=== PATIENT | female | born 1965 | race Caucasian/White ===

== ENCOUNTER 2021-06-23 14:03 | Day surgery (SDC) | payer MEDICARE ==
[2021-06-23] MEDS ORDERED: BUPIVACAINE 0.5% VIAL IJ ONE (14:04)
[2021-06-23] MEDS ORDERED: Depo-Medrol 40 MG/ML IM ONE (14:04)
[2021-06-23] MEDS ORDERED: Lactated Ringers 1,000 ML IV ONE (15:38)
[2021-06-23] MEDS ORDERED: DIPRIVAN 200 MG/20 ML IV ONE (16:37)
--- NOTE | 2021-06-23 18:49 | XRAY ---
Indication: Bilateral SI joint injection. Intraoperative fluoroscopy provided for 18 seconds. 4 digital spot image submitted for interpretation demonstrates posterior needle tip projecting over the inferior left and right SI joint. Correlate with intraoperative findings/report.
--- NOTE | 2021-06-23 18:51 | XRAY ---
18 seconds fluoroscopy time in surgery for injections of both SI joints.
== END 2021-06-23 17:00 | disposition home or self-care (01) ==
LOC: SDC-PAIN 14:03
PROVIDERS: ATTEND Psychiatry & Neurology Pain Medicine
DX: M47.812 Spondylosis without myelopathy or radiculopathy, cervical region (principal); Z79.899 Other long term (current) drug therapy
CPT/HCPCS: 27096; 72202; 77002; G0260; J1030; J2704

== ENCOUNTER 2021-07-14 12:54 | Day surgery (SDC) | payer MEDICARE ==
[2021-07-14] MEDS ORDERED: LIDOCAINE HCL 2% 100 MG/5 ML IJ ONE (12:55)
[2021-07-14] MEDS ORDERED: Depo-Medrol 40 MG/ML IM ONE (12:55)
[2021-07-14] MEDS ORDERED: Lactated Ringers 1,000 ML IV ONE (15:17)
[2021-07-14] MEDS ORDERED: DIPRIVAN 200 MG/20 ML IV ONE (15:37)
--- NOTE | 2021-07-14 16:50 | XRAY ---
Indication: Bilateral L4-S1 MBB. Intraoperative fluoroscopy provided for 11 seconds. Single digital spot image submitted for interpretation demonstrates posterior needle tips projecting over the expected left and right L4-S1 nerve roots. Correlate with intraoperative findings/report.
--- NOTE | 2021-07-14 16:52 | XRAY ---
11 seconds of fluoroscopy was used in surgery for a bilateral L4-S1 MBB.
== END 2021-07-14 16:05 | disposition home or self-care (01) ==
LOC: SDC-PAIN 12:54
PROVIDERS: ATTEND Psychiatry & Neurology Pain Medicine
DX: M47.816 Spondylosis without myelopathy or radiculopathy, lumbar region (principal); I10 Essential (primary) hypertension; Z79.899 Other long term (current) drug therapy
CPT/HCPCS: 64493; 64494; 72020; 77002; J1030; J2704

== ENCOUNTER 2021-08-11 12:16 | Day surgery (SDC) | payer MEDICARE ==
[2021-08-11] MEDS ORDERED: Depo-Medrol 40 MG/ML IM ONE (12:17)
[2021-08-11] MEDS ORDERED: Marcaine Mpf 0.5% Vial 30 Ml IJ ONE (12:17)
[2021-08-11] MEDS ORDERED: DIPRIVAN 200 MG/20 ML IV ONE ×2 (13:38→13:39)
[2021-08-11] MEDS ORDERED: Lactated Ringers 1,000 ML IV ONE (14:02)
--- NOTE | 2021-08-11 15:05 | XRAY ---
Indication: Bilateral L4-S1 MBB. Intraoperative fluoroscopy provided for 13 seconds. Single digital spot images submitted for interpretation demonstrates posterior needle tips projecting over the expected left and right L4-S1 nerve roots. Correlate with intraoperative findings/report.
--- NOTE | 2021-08-11 15:07 | XRAY ---
13 seconds of fluoroscopy was used in surgery for a bilateral L4-S1 MBB.
== END 2021-08-11 14:08 | disposition home or self-care (01) ==
LOC: SDC-PAIN 12:16
PROVIDERS: ATTEND Psychiatry & Neurology Pain Medicine
DX: M47.816 Spondylosis without myelopathy or radiculopathy, lumbar region (principal); Z79.899 Other long term (current) drug therapy
CPT/HCPCS: 64493; 64494; 72020; 77002; J1030; J2704

== ENCOUNTER 2021-09-08 14:14 | Day surgery (SDC) | payer MEDICARE ==
[2021-09-08] MEDS ORDERED: Marcaine Mpf 0.5% Vial 30 Ml IJ ONE (14:15)
[2021-09-08] MEDS ORDERED: Depo-Medrol 40 MG/ML IM ONE (14:15)
[2021-09-08] MEDS ORDERED: XYLOCAINE-MPF 1% 5ML SDV IJ ONE (14:15)
[2021-09-08] MEDS ORDERED: DIPRIVAN 200 MG/20 ML IV ONE (15:36)
[2021-09-08] MEDS ORDERED: Lactated Ringers 1,000 ML IV ONE (16:38)
--- NOTE | 2021-09-09 18:32 | XRAY ---
14 seconds of fluoroscopy was used in surgery for a left L4-S1 RFA.
--- NOTE | 2021-09-10 21:32 | XRAY ---
Indication: Left L4-S1 RFA. Intraoperative fluoroscopy provided for 14 seconds. 3 digital spot images submitted for interpretation demonstrates posterior needle tips projecting over the expected left L4-S1 nerve roots. Correlate with intraoperative findings/report.
== END 2021-09-08 16:02 | disposition home or self-care (01) ==
LOC: SDC-PAIN 14:14
PROVIDERS: ATTEND Psychiatry & Neurology Pain Medicine
DX: M47.816 Spondylosis without myelopathy or radiculopathy, lumbar region (principal); Z79.899 Other long term (current) drug therapy
CPT/HCPCS: 64635; 64636; 72100; 77002; J1030; J2704

== ENCOUNTER 2021-09-15 10:55 | Day surgery (SDC) | payer MEDICARE ==
[2021-09-15] MEDS ORDERED: Depo-Medrol 40 MG/ML IM ONE (10:56)
[2021-09-15] MEDS ORDERED: Marcaine Mpf 0.5% Vial 30 Ml IJ ONE (10:56)
[2021-09-15] MEDS ORDERED: XYLOCAINE-MPF 1% 5ML SDV IJ ONE (10:56)
[2021-09-15] MEDS ORDERED: DIPRIVAN 200 MG/20 ML IV ONE (12:42)
[2021-09-15] MEDS ORDERED: Lactated Ringers 1,000 ML IV ONE (14:04)
--- NOTE | 2021-09-15 14:13 | XRAY ---
Indication: Right L4-S1 RFA. Intraoperative fluoroscopy provided for 15 seconds. 3 digital spot images submitted for interpretation demonstrates posterior needle tips projecting over the expected right L4-S1 nerve roots. Correlate with intraoperative findings/report.
--- NOTE | 2021-09-15 14:54 | XRAY ---
15 seconds fluoroscopy time in surgery for right L4-S1 RFA.
== END 2021-09-15 13:11 | disposition home or self-care (01) ==
LOC: SDC-PAIN 10:55
PROVIDERS: ATTEND Psychiatry & Neurology Pain Medicine
DX: M47.816 Spondylosis without myelopathy or radiculopathy, lumbar region (principal); Z79.899 Other long term (current) drug therapy
CPT/HCPCS: 64635; 64636; 72100; 77002; J1030; J2704

== ENCOUNTER 2022-01-05 12:00 | Day surgery (SDC) | payer MEDICARE ==
[2022-01-05] MEDS ORDERED: Depo-Medrol 40 MG/ML IM ONE (12:01)
[2022-01-05] MEDS ORDERED: Sodium Chloride 0.9(Preservative Free) 10 ML IJ ONE (12:01)
[2022-01-05] MEDS ORDERED: DIPRIVAN 200 MG/20 ML IV ONE (14:28)
--- NOTE | 2022-01-05 15:00 | XRAY ---
Indication: Right L4-S1 transforaminal DILEEP. Intraoperative fluoroscopy provided for 53 seconds. 5 digital spot images submitted for interpretation demonstrates posterior needle tips projecting over the expected right L4 and L5 nerve roots. Small amount of contrast injected for needle tip placement. Correlate with intraoperative findings/report.
--- NOTE | 2022-01-05 15:18 | XRAY ---
53 seconds of fluoroscopy was used in surgery for a right L4-S1 transforaminal DILEEP.
[2022-01-05] MEDS ORDERED: Lactated Ringers 1,000 ML IV ONE (15:49)
== END 2022-01-05 14:52 | disposition home or self-care (01) ==
LOC: SDC-PAIN 12:00
PROVIDERS: ATTEND Psychiatry & Neurology Pain Medicine
DX: M54.16 Radiculopathy, lumbar region (principal); Z79.899 Other long term (current) drug therapy
CPT/HCPCS: 64483; 64484; 72100; 77003; J1030; J2704; Q9966

== ENCOUNTER 2022-03-16 12:22 | Day surgery (SDC) | payer MEDICARE ==
[2022-03-16] MEDS ORDERED: BUPIVACAINE 0.5% VIAL IJ ONE (12:23)
[2022-03-16] MEDS ORDERED: Depo-Medrol 40 MG/ML IM ONE (12:23)
[2022-03-16] MEDS ORDERED: DIPRIVAN 200 MG/20 ML IV ONE (15:23)
--- NOTE | 2022-03-16 16:49 | XRAY ---
Indication: Bilateral SI joint injection. Intraoperative fluoroscopy provided for 14 seconds. 4 digital spot image submitted for interpretation demonstrates posterior needle tip projecting over the left and right SI joint. Correlate with intraoperative findings/report.
[2022-03-16] MEDS ORDERED: Lactated Ringers 1,000 ML IV ONE (17:06)
--- NOTE | 2022-03-16 17:33 | XRAY ---
14 seconds of fluoroscopy was used in surgery for bilateral SI joint injections.
== END 2022-03-16 15:55 | disposition home or self-care (01) ==
LOC: SDC-PAIN 12:22
PROVIDERS: ATTEND Psychiatry & Neurology Pain Medicine
DX: M46.1 Sacroiliitis, not elsewhere classified (principal); Z79.899 Other long term (current) drug therapy
CPT/HCPCS: 27096; 72202; 77002; G0260; J1030; J2704

== ENCOUNTER 2022-04-13 13:17 | Day surgery (SDC) | payer MEDICARE ==
[2022-04-13] MEDS ORDERED: LIDOCAINE HCL 2% 100 MG/5 ML IJ ONE (13:18)
[2022-04-13] MEDS ORDERED: DIPRIVAN 200 MG/20 ML IV ONE (15:03)
--- NOTE | 2022-04-13 16:40 | XRAY ---
Indication: Right C2-C4 MBB. Intraoperative fluoroscopy provided for 15 seconds. 2 digital spot images submitted for interpretation demonstrates posterior needle tips projecting over the expected right C2-C4 nerve roots. Correlate with intraoperative findings/report. Incidental incompletely visualized lower cervical fusion hardware.
--- NOTE | 2022-04-13 16:42 | XRAY ---
15 seconds of fluoroscopy was used in surgery for a right C2-C4 MBB.
[2022-04-13] MEDS ORDERED: Lactated Ringers 1,000 ML IV ONE (16:49)
== END 2022-04-13 15:40 | disposition home or self-care (01) ==
LOC: SDC-PAIN 13:17
PROVIDERS: ATTEND Psychiatry & Neurology Pain Medicine
DX: M47.812 Spondylosis without myelopathy or radiculopathy, cervical region (principal); Z79.899 Other long term (current) drug therapy
CPT/HCPCS: 64490; 64491; 72040; 77002; J2704

== ENCOUNTER 2022-05-18 12:21 | Day surgery (SDC) | payer MEDICARE ==
[2022-05-18] MEDS ORDERED: BUPIVACAINE 0.5% VIAL IJ ONE (12:22)
[2022-05-18] MEDS ORDERED: Lactated Ringers 1,000 ML IV ONE (13:58)
[2022-05-18] MEDS ORDERED: DIPRIVAN 200 MG/20 ML IV ONE (14:21)
--- NOTE | 2022-05-18 15:05 | XRAY ---
Indication: Right C2-C4 MBB. Intraoperative fluoroscopy provided for 30 seconds. 3 digital spot image submitted for interpretation demonstrates posterior needle tips projecting over the expected right C2-C4 nerve roots. Correlate with intraoperative findings/report. Incidental C5-C6 anterior fusion hardware.
--- NOTE | 2022-05-18 15:07 | XRAY ---
30 seconds of fluoroscopy was used in surgery for a right C2-C4 MBB.
== END 2022-05-18 14:55 | disposition home or self-care (01) ==
LOC: SDC-PAIN 12:21
PROVIDERS: ATTEND Psychiatry & Neurology Pain Medicine
DX: M47.812 Spondylosis without myelopathy or radiculopathy, cervical region (principal); Z79.899 Other long term (current) drug therapy
CPT/HCPCS: 64490; 64491; 72040; 77002; J2704

== ENCOUNTER 2022-06-15 14:11 | Day surgery (SDC) | payer MEDICARE ==
[2022-06-15] MEDS ORDERED: LIDOCAINE HCL 1% 50 MG/5 ML VL PF IJ ONE (14:12)
[2022-06-15] MEDS ORDERED: Decadron 4 MG INJ IV ONE (14:12)
[2022-06-15] MEDS ORDERED: BUPIVACAINE 0.5% VIAL IJ ONE (14:12)
[2022-06-15] MEDS ORDERED: DIPRIVAN 200 MG/20 ML IV ONE (16:35)
[2022-06-15] MEDS ORDERED: Lactated Ringers 1,000 ML IV ONE (16:44)
--- NOTE | 2022-06-15 18:53 | XRAY ---
Indication: Right C2-C4 RFA. Intraoperative fluoroscopy provided for 21 seconds. 2 digital spot image submitted for interpretation demonstrates posterior needle tips projecting over the expected right C2-C4 nerve roots. Correlate with intraoperative findings/report. Incidental lower cervical fusion hardware.
--- NOTE | 2022-06-16 09:56 | XRAY ---
21 seconds of fluoroscopy was used in surgery for a right C2-C4 RFA.
== END 2022-06-15 17:10 | disposition home or self-care (01) ==
LOC: SDC-PAIN 14:11
PROVIDERS: ATTEND Psychiatry & Neurology Pain Medicine
DX: M47.812 Spondylosis without myelopathy or radiculopathy, cervical region (principal); Z79.899 Other long term (current) drug therapy
CPT/HCPCS: 64633; 64634; 72040; 77002; J1100; J2001; J2704

== ENCOUNTER 2022-11-02 11:41 | Day surgery (SDC) | payer MEDICARE ==
[2022-11-02] MEDS ORDERED: BUPIVACAINE 0.5% VIAL IJ ONE (11:42)
[2022-11-02] MEDS ORDERED: Depo-Medrol 40 MG/ML IM ONE (11:42)
[2022-11-02] MEDS ORDERED: LIDOCAINE HCL 1% 50 MG/5 ML VL PF IJ ONE (11:42)
[2022-11-02] MEDS ORDERED: DIPRIVAN 200 MG/20 ML IV ONE (13:46)
[2022-11-02] MEDS ORDERED: TORAdol 30 mg Injection ONE (14:01)
[2022-11-02] MEDS ORDERED: Lactated Ringers 1,000 ML IV ONE (14:34)
--- NOTE | 2022-11-02 15:07 | XRAY ---
Indication: Right L4-S1 RFA. Intraoperative fluoroscopy provided 16 seconds. 3 digital spot image submitted for interpretation demonstrates posterior needle tips projecting over the expected right L4-S1 nerve roots. Correlate with intraoperative findings/report.
--- NOTE | 2022-11-02 17:34 | XRAY ---
16 seconds of fluoroscopy was used in surgery for a right L4-S1 RFA.
== END 2022-11-02 14:20 | disposition home or self-care (01) ==
LOC: SDC-PAIN 11:41
PROVIDERS: ATTEND Psychiatry & Neurology Pain Medicine
DX: M47.816 Spondylosis without myelopathy or radiculopathy, lumbar region (principal); Z79.899 Other long term (current) drug therapy
CPT/HCPCS: 64635; 64636; 72100; 77002; J1030; J1885; J2001; J2704

== ENCOUNTER 2022-11-09 11:05 | Day surgery (SDC) | payer MEDICARE ==
[2022-11-09] MEDS ORDERED: BUPIVACAINE 0.5% VIAL IJ ONE (11:06)
[2022-11-09] MEDS ORDERED: LIDOCAINE HCL 1% 50 MG/5 ML VL PF IJ ONE (11:06)
[2022-11-09] MEDS ORDERED: Depo-Medrol 40 MG/ML IM ONE (11:06)
[2022-11-09] MEDS ORDERED: DIPRIVAN 200 MG/20 ML IV ONE (12:46)
[2022-11-09] MEDS ORDERED: Lactated Ringers 1,000 ML IV ONE (14:02)
--- NOTE | 2022-11-09 14:43 | XRAY ---
Indication: Left L4-S1 RFA. Intraoperative fluoroscopy provided for 19 seconds. 3 digital spot image submitted for interpretation demonstrates posterior needle tips projecting over the expected left L4-S1 nerve roots. Correlate with intraoperative findings/report.
--- NOTE | 2022-11-09 17:05 | XRAY ---
19 seconds of fluoroscopy was used in surgery for a left L4-S1 RFA.
== END 2022-11-09 13:18 | disposition home or self-care (01) ==
LOC: SDC-PAIN 11:05
PROVIDERS: ATTEND Psychiatry & Neurology Pain Medicine
DX: M47.816 Spondylosis without myelopathy or radiculopathy, lumbar region (principal); Z79.899 Other long term (current) drug therapy
CPT/HCPCS: 64635; 64636; 72100; 77002; J1030; J2001; J2704

== ENCOUNTER 2023-08-23 12:09 | Day surgery (SDC) | payer MEDICARE ==
[2023-08-23] MEDS ORDERED: Depo-Medrol 40 MG/ML IM ONE (12:10)
[2023-08-23] MEDS ORDERED: BUPIVACAINE 0.5% VIAL IJ ONE (12:10)
[2023-08-23] MEDS ORDERED: DIPRIVAN 200 MG/20 ML IV ONE (13:41)
--- NOTE | 2023-08-23 14:45 | XRAY ---
Indication: Bilateral SI joint injection. Intraoperative fluoroscopy provided for 41 seconds. 2 digital spot image submitted for interpretation demonstrates posterior needle tips projecting over the expected left and right SI joints. Small amount of contrast injected for needle tip placement. Correlate with intraoperative findings/report.
[2023-08-23] MEDS ORDERED: Lactated Ringers 1,000 ML IV ONE (15:07)
--- NOTE | 2023-08-23 16:44 | XRAY ---
41 seconds of fluoroscopy was used in surgery for a bilateral sacroiliac joint injection.
== END 2023-08-23 14:09 | disposition home or self-care (01) ==
LOC: SDC-PAIN 12:09
PROVIDERS: ATTEND Psychiatry & Neurology Pain Medicine
DX: M46.1 Sacroiliitis, not elsewhere classified (principal)
CPT/HCPCS: 01992; 27096; 72202; 77002; G0260; J1010; J2704; Q9966

== ENCOUNTER 2024-02-21 13:04 | Day surgery (SDC) | payer MEDICARE ==
[2024-02-21] MEDS ORDERED: Depo-Medrol 40 MG/ML IM ONE (13:05)
[2024-02-21] MEDS ORDERED: LIDOCAINE HCL 1% AMPUL 5 ML IJ ONE (13:05)
[2024-02-21] MEDS ORDERED: BUPIVACAINE 0.5% VIAL IJ ONE (13:05)
[2024-02-21] MEDS ORDERED: DIPRIVAN 200 MG/20 ML IV ONE (14:41)
--- NOTE | 2024-02-21 16:49 | XRAY ---
Indication: Left L4-S1 RFA. Intraoperative fluoroscopy provided for 13 seconds. 4 digital spot image submitted for interpretation demonstrates posterior needle tips projecting over the expected left L4-S1 nerve roots. Correlate with intraoperative findings/report.
--- NOTE | 2024-02-21 17:05 | XRAY ---
13 seconds of fluoroscopy was used in surgery for a left L4-S1 RFA.
== END 2024-02-21 15:14 | disposition home or self-care (01) ==
LOC: SDC-PAIN 13:04
PROVIDERS: ATTEND Psychiatry & Neurology Pain Medicine
DX: M47.817 Spondylosis without myelopathy or radiculopathy, lumbosacral region (principal)
CPT/HCPCS: 64635; 64636; 72100; 77002; J2704

== ENCOUNTER 2024-02-22 13:03 | Day surgery (SDC) | payer MEDICARE ==
[2024-02-22] MEDS ORDERED: LIDOCAINE HCL 1% AMPUL 5 ML IJ ONE (13:04)
[2024-02-22] MEDS ORDERED: Depo-Medrol 40 MG/ML IM ONE (13:04)
[2024-02-22] MEDS ORDERED: BUPIVACAINE 0.5% VIAL IJ ONE (13:04)
[2024-02-22] MEDS ORDERED: DIPRIVAN 200 MG/20 ML IV ONE (14:57)
--- NOTE | 2024-02-22 16:50 | XRAY ---
Indication: Right L4-S1 RFA. Intraoperative fluoroscopy provided for 15 seconds. 3 digital spot image submitted for interpretation demonstrates posterior needle tips projecting over expected right L4-S1 nerve roots. Correlate with intraoperative findings/report.
--- NOTE | 2024-02-22 16:54 | XRAY ---
15 seconds of fluoroscopy was used in surgery for a right L4-S1 RFA.
== END 2024-02-22 15:37 | disposition home or self-care (01) ==
LOC: SDC-PAIN 13:03
PROVIDERS: ATTEND Psychiatry & Neurology Pain Medicine
DX: M47.816 Spondylosis without myelopathy or radiculopathy, lumbar region (principal)
CPT/HCPCS: 64635; 64636; 72100; 77002; J2704

== ENCOUNTER 2024-04-10 11:05 | Day surgery (SDC) | payer MEDICARE ==
[2024-04-10] MEDS ORDERED: dexAMETHasone sodium phosphate IJ ONE (11:06)
[2024-04-10] MEDS ORDERED: Depo-Medrol 40 MG/ML IM ONE (11:06)
[2024-04-10] MEDS ORDERED: BUPIVACAINE 0.5% VIAL IJ ONE (11:06)
[2024-04-10] MEDS ORDERED: LIDOCAINE HCL 1% AMPUL 5 ML IJ ONE (11:06)
[2024-04-10] MEDS ORDERED: propofoL IV ONE (13:00)
--- NOTE | 2024-04-10 14:38 | XRAY ---
23 seconds of fluoroscopy was used in surgery for a right sacroiliac joint and piriformis injection.
--- NOTE | 2024-04-10 14:38 | XRAY ---
Indication: Right SI joint and piriformis injection Intraoperative fluoroscopy was provided for 23 seconds. 4 digital spot images submitted for interpretation demonstrates posterior needle tips projecting over right SI joint and right piriformis. Small amount of contrast injected for both needle tip placement. Correlate with intraoperative findings/report.
== END 2024-04-10 13:37 | disposition home or self-care (01) ==
LOC: SDC-PAIN 11:05
PROVIDERS: ATTEND Psychiatry & Neurology Pain Medicine
DX: M46.1 Sacroiliitis, not elsewhere classified (principal); M79.18 Myalgia, other site
CPT/HCPCS: 20552; 27096; 72202; 77002; J1100; J2704; Q9966

== ENCOUNTER 2024-05-22 11:18 | Day surgery (SDC) | payer MEDICARE ==
[2024-05-22] MEDS ORDERED: dexAMETHasone sodium phosphate IJ ONE (11:19)
[2024-05-22] MEDS ORDERED: BUPIVACAINE 0.5% VIAL IJ ONE (11:19)
[2024-05-22] MEDS ORDERED: propofoL IV ONE (12:50)
--- NOTE | 2024-05-22 13:35 | XRAY ---
Indication: Bilateral cluneal nerve block. Intraoperative fluoroscopy provided for 24 seconds. 3 digital spot image submitted for interpretation demonstrates posterior needle tips projecting over left and right iliac crests. Correlate with intraoperative findings/report.
--- NOTE | 2024-05-22 14:44 | XRAY ---
24 seconds of fluoroscopy was used in surgery for a bilateral cluneal nerve block.
== END 2024-05-22 13:30 | disposition home or self-care (01) ==
LOC: SDC-PAIN 11:18
PROVIDERS: ATTEND Psychiatry & Neurology Pain Medicine
DX: M54.50 Low back pain, unspecified (principal)
CPT/HCPCS: 72170; 77002; J1100; J2704

== ENCOUNTER 2024-11-20 13:10 | Day surgery (SDC) | payer MEDICARE ==
[2024-11-20] MEDS ORDERED: Sodium Chloride 0.9(Preservative Free) 10 ML IJ ONE (13:11)
[2024-11-20] MEDS ORDERED: propofoL IV ONE (15:00)
[2024-11-20] MEDS ORDERED: MORPHINE SULFATE 2 MG INJ ONE (15:30)
[2024-11-20] MEDS ORDERED: Lactated Ringers 1,000 ML IV ONE (16:12)
--- NOTE | 2024-11-20 17:07 | XRAY ---
Indication: Left L4-S1 transforaminal DILEEP. Intraoperative fluoroscopy provided for 48 seconds. 7 digital spot image submitted for interpretation demonstrates posterior needle tips projecting over expected left L4 and L5 nerve roots. Small amount of contrast injected for needle tip placement. Correlate with intraoperative findings/report.
--- NOTE | 2024-11-20 17:09 | XRAY ---
48 seconds of fluoroscopy was used in surgery for a left L4-S1 transforaminal DILEEP.
== END 2024-11-20 15:56 | disposition home or self-care (01) ==
LOC: SDC-PAIN 13:10
PROVIDERS: ATTEND Psychiatry & Neurology Pain Medicine
DX: M54.16 Radiculopathy, lumbar region (principal)

== ENCOUNTER 2024-12-25 11:25 | Day surgery (SDC) | payer MEDICARE ==
[2024-12-25] MEDS ORDERED: LIDOCAINE HCL 2% 100 MG/5 ML IJ ONE (11:26)
[2024-12-25] MEDS ORDERED: propofoL IV ONE (13:30)
--- NOTE | 2024-12-25 15:18 | XRAY ---
Indication: Right C2-C4 MBB. Intraoperative fluoroscopy provided for 18 seconds. 2 digital spot image submitted for interpretation demonstrates posterior needle tips projecting over expected right C2-C4 nerve roots. Correlate with intraoperative findings/report. Incidental lower cervical fusion hardware
--- NOTE | 2024-12-25 16:56 | XRAY ---
18 seconds of fluoroscopy was used in surgery for a right C2-C4 MBB.
[2024-12-25] MEDS ORDERED: Lactated Ringers 1,000 ML IV ONE (17:16)
== END 2024-12-25 14:03 | disposition home or self-care (01) ==
LOC: SDC-PAIN 11:25
PROVIDERS: ATTEND Psychiatry & Neurology Pain Medicine
DX: M47.812 Spondylosis without myelopathy or radiculopathy, cervical region (principal)

== ENCOUNTER 2025-01-23 13:48 | Day surgery (SDC) | payer MEDICARE ==
[2025-01-23] MEDS ORDERED: BUPIVACAINE 0.5% VIAL IJ ONE (13:49)
[2025-01-23] MEDS ORDERED: methylPREDNISolone acetate IM ONE (13:49)
[2025-01-23] MEDS ORDERED: propofoL IV ONE (15:30)
[2025-01-23] MEDS ORDERED: Lactated Ringers 1,000 ML IV ONE (16:10)
--- NOTE | 2025-01-23 16:35 | XRAY ---
Indication: Right C2-C4 MBB. Intraoperative fluoroscopy provided for 20 seconds. 2 digital spot image submitted for interpretation demonstrates posterior needle tips projecting over expected right C2-C4 nerve roots. Correlate with intraoperative findings/report. Incidental lower cervical fusion hardware.
--- NOTE | 2025-01-23 17:00 | XRAY ---
20 seconds of fluoroscopy was used in surgery for a right C2-C4 MBB.
== END 2025-01-23 16:10 | disposition home or self-care (01) ==
LOC: SDC-PAIN 13:48
PROVIDERS: ATTEND Psychiatry & Neurology Pain Medicine
DX: M47.812 Spondylosis without myelopathy or radiculopathy, cervical region (principal)